=== PATIENT | female | born 1960 | race Caucasian/White ===

== ENCOUNTER 2021-07-28 11:39 | Outpatient (CLI) | payer MEDICARE | END 2021-07-28 11:40 | disposition home or self-care (01) | LOC: CSHMAMMO 11:39 | PROVIDERS: ATTEND Family Medicine | DX: Z12.31 Encounter for screening mammogram for malignant neoplasm of breast (principal) | CPT/HCPCS: 77063; 77067 ==

== ENCOUNTER 2024-10-30 13:35 | Outpatient (CLI) | payer MEDICARE | END 2024-10-30 13:36 | disposition home or self-care (01) | LOC: CSHMAMMO 13:35 | PROVIDERS: ATTEND Family Medicine | DX: Z12.31 Encounter for screening mammogram for malignant neoplasm of breast (principal); Z78.0 Asymptomatic menopausal state; M85.852 Other specified disorders of bone density and structure, left thigh; M81.0 Age-related osteoporosis without current pathological fracture | CPT/HCPCS: 77063; 77067; 77080 ==